=== PATIENT | female | born 1950 | race Caucasian/White ===

== ENCOUNTER 2018-02-14 12:47 | Emergency (ER) | payer OTHER ==
[~2018-02-14] VITALS: Ht 172.7 cm; Wt 72.6 kg
[~2018-02-14 12:47] MED LIST: BENADRYL PRN; PRED20 PO; [UNRECOGNIZED DRUG - REMARK]
[2018-02-14 13:19] LABS: BASOPHILS ABSOLUTE AUTO 0.03 K/mm3 (0.00-0.23); BASOPHILS PERCENT AUTO 1 % (0-2); EOSINOPHILS ABSOLUTE AUTO 0.13 K/mm3 (0.00-0.68); EOSINOPHILS PERCENT AUTO 2 % (0-6); Hematocrit 39.3 % (33.0-51.0); Hemoglobin 13.1 g/dL (11.5-16.0); IMMATURE GRAN ABSOLUTE AUTO 0.01 K/mm3 (0.00-0.10); IMMATURE GRAN PERCENT AUTO 0 % (0-1); LYMPHOCYTES ABSOLUTE AUTO 1.28 K/mm3 (0.84-5.20); LYMPHOCYTES PERCENT AUTO 22 % (21-46); MONOCYTES ABSOLUTE AUTO 0.49 K/mm3 (0.16-1.47); MONOCYTES PERCENT AUTO 8 % (4-13); Mean Corpuscular HGB 29.9 pg (26.0-34.0); Mean Corpuscular HGB Conc 33.3 g/dL (31.5-36.5); Mean Corpuscular Volume 90 fL (80-100); Mean Platelet Volume 10.6 fL (9.1-12.4); NEUTROPHILS ABSOLUTE AUTO 3.98 K/mm3 (1.96-9.15); NEUTROPHILS PERCENT AUTO 67 % (41-73); Platelet Count 350 K/mm3 (150-400); RDW Standard Deviation 42.9 fL (35.1-46.3); Red Blood Cell Count 4.38 M/mm3 (3.80-5.20); White Blood Cell Count 5.92 K/mm3 (4.00-11.30)
[2018-02-14 13:39] LABS: Alanine Aminotransfer (ALT/SGP 26 U/L (12-78); Albumin, Blood 3.8 g/dL (3.4-5.0); Albumin/Globulin Ratio 1.2 (0.8-1.8); Alk Phos 56 U/L (50-136); Anion Gap 8 mmol/L (6-16); Aspartate Aminotrans (AST/SGOT 20 U/L (12-37); Bilirubin, Total 0.4 mg/dL (0.1-1.0); Blood Urea Nitrogen 9 mg/dL (8-24); Bun/Creatinine Ratio 14.7 (12.0-20.0); CO2, Blood 26 mmol/L (21-32); Calcium, Blood 8.4 mg/dL (8.5-10.1); Chloride, Blood 107 mmol/L (98-108); Creatinine, Blood 0.61 mg/dL (0.40-1.00); Globulin, Blood 3.2 g/dL (2.2-4.0); Glomerular Filtration Rate >60 (60-); Glucose, Blood 88 mg/dL (70-99); Potassium, Blood 3.9 mmol/L (3.5-5.5); Sodium, Blood 141 mmol/L (136-145); Troponin I <0.015 ng/mL (0.000-0.040)
[2018-02-14 16:08] LABS: Free Thyroxine 1.11 ng/dL (0.70-1.60)
[2018-02-14 16:10] LABS: Thyroid Stimulating Hormone 1.22 uIU/mL (0.360-4.800)
== END 2018-02-14 14:36 | disposition home or self-care (01) ==
LOC: ER 12:47
PROVIDERS: Emergency Medicine; Physician Assistant
DX: R00.2 Palpitations (principal); Z87.891 Personal history of nicotine dependence
CPT/HCPCS: 36415; 71046; 80053; 83880; 84439; 84443; 84484; 85025; 93005; 93010; 99283

== ENCOUNTER → 2019-08-30 | Outpatient (CLI) | payer OTHER ==
[2019-08-30 14:46] LABS: Alanine Aminotransfer (ALT/SGP 30 U/L (12-78); Albumin/Globulin Ratio 1.3 (0.8-1.8); Alk Phos 58 U/L (50-136); Anion Gap 7 mmol/L (6-16); Aspartate Aminotrans (AST/SGOT 21 U/L (12-37); Bilirubin, Total 0.6 mg/dL (0.1-1.0); Blood Urea Nitrogen 22 mg/dL (8-24); Bun/Creatinine Ratio 28.7 (12.0-20.0); CO2, Blood 26 mmol/L (21-32); Calcium, Blood 9.5 mg/dL (8.5-10.1); Chloride, Blood 105 mmol/L (98-108); Creatinine, Blood 0.77 mg/dL (0.40-1.00); Glomerular Filtration Rate >60 (60-); Glucose, Blood 89 mg/dL (70-99); Potassium, Blood 4.3 mmol/L (3.5-5.5); Sodium, Blood 138 mmol/L (136-145)
== END | disposition home or self-care (01) ==
LOC: LAB SHORT 13:30 → LAB 13:30
PROVIDERS: Nurse Practitioner Family
DX: R19.09 Other intra-abdominal and pelvic swelling, mass and lump (principal)
CPT/HCPCS: 80053; 86304

== ENCOUNTER 2021-03-20 06:59 | Day surgery (SDC) | payer OTHER ==
[~2021-03-20] VITALS: Ht 172.7 cm; Wt 77.6 kg
--- NOTE | 2021-03-20 07:30 | NUR ---
03/20/21 0730 Mary Hankins 1 try right hand blew
== END 2021-03-20 08:34 | disposition home or self-care (01) ==
LOC: ORSCSDS 06:59
PROVIDERS: Surgery
PROC: 0DBL8ZX Excision of Transverse Colon, Via Natural or Artificial Opening Endoscopic, Diagnostic (ICD-10-PCS; principal; 2021-03-20 08:00)
PROC: 0DBH8ZX Excision of Cecum, Via Natural or Artificial Opening Endoscopic, Diagnostic (ICD-10-PCS; principal; 2021-03-20 08:00)
DX: Z12.11 Encounter for screening for malignant neoplasm of colon (principal); D12.0 Benign neoplasm of cecum; D12.3 Benign neoplasm of transverse colon; Z86.010 Personal history of colon polyps; Z87.891 Personal history of nicotine dependence
CPT/HCPCS: 88305; J0461; J2405; J2704; J7120

== ENCOUNTER → 2022-01-25 | Outpatient (CLI) | payer OTHER ==
[2022-01-25 18:44] LABS: Creatinine Urine 75.4 mg/dL (27.00-270.00)
== END ==
LOC: LAB SHORT 16:13
PROVIDERS: Internal Medicine Endocrinology, Diabetes & Metabolism
DX: D35.02 Benign neoplasm of left adrenal gland (principal)
CPT/HCPCS: 81050; 82570

== ENCOUNTER → 2023-01-09 | Outpatient (CLI) | payer OTHER ==
[2023-01-13 23:09] LABS: DOPAMINE, URINE 119 ug/L (Undefined)
== END ==
LOC: LAB SHORT 13:05 → LAB 13:05
PROVIDERS: Internal Medicine Endocrinology, Diabetes & Metabolism
DX: D49.7 Neoplasm of unspecified behavior of endocrine glands and other parts of nervous system (principal)
CPT/HCPCS: 81050

== ENCOUNTER 2023-02-21 06:33 | Day surgery (SDC) | payer OTHER ==
[~2023-02-21] VITALS: Ht 172.7 cm; Wt 78.8 kg
--- NOTE | 2023-02-21 07:11 | NUR ---
Ambulatory in Day Surgery History, Chart, Medications and Allergies reviewed before start of procedure. Lungs clear T/O to Auscultation. Pre-Op teaching done. Pt verbalizes understanding. Patient States Post-Procedure ride home has been arranged.
--- NOTE | 2023-02-21 11:37 | NUR ---
DISCHARGE SUMMARY PT A&OX4, VSS/RA, MICAELA PO H20, PAIN MANAGED, DRESSED SELF. DC INS PROVIDED. PT AND /ASSISTED LIVING MANAGER REP UNDERSTANDING THOSE INSTRUCTIONS INCLUDING FU APPT WITH , CRUTCHES WITH ALL ACTIVITY, ELEVATE LLE. IV DC'D. LEFT FLOOR VIA WC WITH DC VOL TO GO HOME WITH WITH ALL PERSONAL POSSESSIONS INCLUDING DC PACKET, PT HAS [place] AT HOME.
== END 2023-02-21 22:57 | disposition home or self-care (01) ==
LOC: ORSCMMR 06:33 → ORD 07:30 → ORSCMMR 07:30
PROVIDERS: Podiatrist Foot & Ankle Surgery
PROC: 0SBG4ZZ Excision of Left Ankle Joint, Percutaneous Endoscopic Approach (ICD-10-PCS; principal; 2023-02-21 07:30)
PROC: 0LMT0ZZ Reattachment of Left Ankle Tendon, Open Approach (ICD-10-PCS; principal; 2023-02-21 07:30)
DX: M76.822 Posterior tibial tendinitis, left leg (principal); M79.672 Pain in left foot; M25.572 Pain in left ankle and joints of left foot; M21.6X2 Other acquired deformities of left foot; M19.072 Primary osteoarthritis, left ankle and foot
CPT/HCPCS: A9270; J0171; J0690; J1100; J1885; J2250; J2405; J2704; J2795; J3010; J7120

== ENCOUNTER → 2024-05-27 | Outpatient (CLI) | payer OTHER ==
[2024-05-30 05:54] LABS: CREATININE,URINE - PER 24H 1680 mg/d (500-1400); CREATININE,URINE - PER VOLUME 100 mg/dL; HOURS COLLECTED 23 hr; METANEPHRINE,UR - RATIO TO CRT 84 ug/g CRT (0-300); METANEPHRINE,URINE - PER 24H 141 ug/d (36-229); METANEPHRINE,URN - PER VOLUME 84 ug/L; NORMETANEPHRINE,U - PER VOLUME 188 ug/L; NORMETANEPHRINE,URN - PER 24H 316 ug/d (95-650); NORMETANEPHRINE,URN/CRT RATIO 188 ug/g CRT (0-400); TOTAL VOLUME 1610 mL
[2024-05-30 13:17] LABS: CREATININE,URINE - PER 24H 1546 mg/d (500-1400); CREATININE,URINE - PER VOLUME 100 mg/dL; HOURS COLLECTED 25 hr; TOTAL VOLUME 1610 mL
[2024-05-31 16:29] LABS: CREATININE,URINE - PER 24H 1680 mg/d (500-1400); CREATININE,URINE - PER VOLUME 100 mg/dL; DOPAMINE,URINE - PER 24H 223 ug/d (71-485); DOPAMINE,URINE - PER VOLUME 133 ug/L; DOPAMINE,URINE - RATIO TO CRT 133 ug/g CRT (0-250); EPINEPHRINE,URINE - PER 24H 3 ug/d (1-14); EPINEPHRINE,URINE - PER VOLUME 2 ug/L; EPINEPHRINE,URN - RATIO TO CRT 2 ug/g CRT (0-20); HOURS COLLECTED 23 hr; NOREPINEPHRINE,UR - PER VOLUME 22 ug/L; NOREPINEPHRINE,URINE - PER 24H 37 ug/d (14-120); NOREPINEPHRINE,URN/CRT RATIO 22 ug/g CRT (0-45); TOTAL VOLUME 1610 mL
== END | disposition home or self-care (01) ==
LOC: LAB 12:10 → LAB SHORT 12:10 → LAB FUT 04-12 12:40
PROVIDERS: Internal Medicine Endocrinology, Diabetes & Metabolism
DX: D49.7 Neoplasm of unspecified behavior of endocrine glands and other parts of nervous system (principal)
CPT/HCPCS: 81050; 82384; 82530; 83835

== ENCOUNTER → 2024-11-11 | Outpatient (CLI) | payer OTHER ==
[2024-11-11 14:31] LABS: BASOPHILS ABSOLUTE AUTO 0.03 K/mm3 (0.00-0.23); BASOPHILS PERCENT AUTO 1 % (0-2); EOSINOPHILS ABSOLUTE AUTO 0.09 K/mm3 (0.00-0.68); EOSINOPHILS PERCENT AUTO 2 % (0-6); Hematocrit 39.9 % (33.0-51.0); Hemoglobin 13.8 g/dL (11.5-16.0); IMMATURE GRAN ABSOLUTE AUTO 0.02 K/mm3 (0.00-0.10); IMMATURE GRAN PERCENT AUTO 0 % (0-1); LYMPHOCYTES ABSOLUTE AUTO 1.15 K/mm3 (0.84-5.20); LYMPHOCYTES PERCENT AUTO 20 % (21-46); MONOCYTES ABSOLUTE AUTO 0.54 K/mm3 (0.16-1.47); MONOCYTES PERCENT AUTO 9 % (4-13); Mean Corpuscular HGB 31.2 pg (26.0-34.0); Mean Corpuscular HGB Conc 34.6 g/dL (31.5-36.5); Mean Corpuscular Volume 90 fL (80-100); Mean Platelet Volume 11.6 fL (9.1-12.4); NEUTROPHILS ABSOLUTE AUTO 4.03 K/mm3 (1.96-9.15); NEUTROPHILS PERCENT AUTO 69 % (41-73); Platelet Count 404 K/mm3 (150-400); Red Blood Cell Count 4.42 M/mm3 (3.80-5.20); White Blood Cell Count 5.86 K/mm3 (4.00-11.30)
[2024-11-11 14:49] LABS: Albumin/Globulin Ratio 1.4 (0.8-1.8); Bilirubin, Total 0.9 mg/dL (0.1-1.0); Bun/Creatinine Ratio 23.2 (12.0-20.0); Creatinine, Blood 0.65 mg/dL (0.40-1.00); Globulin, Blood 2.9 g/dL (2.2-4.0); Potassium, Blood 3.9 mmol/L (3.5-5.5); Total Protein, Blood 6.9 g/dL (6.4-8.2)
== END | disposition home or self-care (01) ==
LOC: LAB SHORT 12:50 → LAB 12:50
DX: R10.9 Unspecified abdominal pain (principal)
CPT/HCPCS: 80053; 83690; 85025; 85379